=== PATIENT | female | born 1970 | race Caucasian/White ===

== ENCOUNTER 2020-08-23 09:42 | Inpatient (IN) | payer MEDICAID ==
[2020-08-23 12:01] VITALS: BP 131/84
[2020-08-23] MEDS: LORazepam 2 MG TABLET PO PRN ×2 (14:31→20:04)
[2020-08-23] MEDS: HALOPERIDOL 5 MG TABLET PO PRN ×2 (15:45→20:04)
[2020-08-23 16:02] VITALS: BP 101/61
[2020-08-24 01:13] VITALS: BP 100/64
[2020-08-24] MEDS: HALOPERIDOL 5 MG TABLET PO PRN ×2 (06:56→14:22)
[2020-08-24] MEDS: LORazepam 2 MG TABLET PO PRN ×3 (06:56→16:32)
[2020-08-24] MEDS: BACITRACIN 28 GM OINTMENT TP SCH (07:57)
[2020-08-24] MEDS: CITALOPRAM HYDROBROMIDE 20 MG TABLET PO SCH (07:57)
[2020-08-24 08:16] VITALS: BP 118/86
[2020-08-24 16:05] VITALS: BP 127/79
[2020-08-24] MEDS: ZOLPIDEM TARTRATE 10 MG TABLET PO PRN (20:08)
[2020-08-25 02:28] VITALS: BP 120/73
[2020-08-25] MEDS: CITALOPRAM HYDROBROMIDE 20 MG TABLET PO SCH (08:15)
[2020-08-25] MEDS: LORazepam 2 MG TABLET PO PRN ×3 (08:15→16:40)
[2020-08-25] MEDS: BACITRACIN 28 GM OINTMENT TP SCH (08:15)
[2020-08-25 08:16] VITALS: BP 122/73
[2020-08-25] MEDS: HALOPERIDOL 5 MG TABLET PO PRN ×2 (08:55→13:14)
[2020-08-25 16:07] VITALS: BP 111/74
[2020-08-25] MEDS: ZOLPIDEM TARTRATE 10 MG TABLET PO PRN (20:05)
[2020-08-26 00:35] VITALS: BP 106/68
[2020-08-26 07:39] LABS: BASOPHILS % (AUTO) 0.2 % (0.0-2.0); EOSINOPHILS % (AUTO) 1.9 % (1.0-6.0); HEMATOCRIT 36.4 % (36-46); HEMOGLOBIN 12.2 g/dL (12.0-16.0); LYMPHOCYTES # (AUTO) 2.5 K/uL (1.0-4.8); LYMPHOCYTES % (AUTO) 28.1 % (22.0-44.0); MEAN CORPUSCULAR HEMOGLOBIN 27.4 pg (26.0-34.0); MEAN CORPUSCULAR HGB CONC 33.6 G/dL (31.0-37.0); MEAN CORPUSCULAR VOLUME 82 fL (80-100); MONOCYTES # (AUTO) 0.5 K/uL (0.1-1.0); MONOCYTES % (AUTO) 5.3 % (2.0-9.0); NEUTROPHILS # (AUTO) 5.7 K/uL (1.8-7.7); NEUTROPHILS % (AUTO) 64.5 % (40.0-70.0); PLATELET COUNT (AUTO) 259 K/uL (150-450); RED BLOOD CELL COUNT(AUTO) 4.46 MIL/uL (4.00-5.20); RED CELL DISTRIBUTION WIDTH 13.7 % (11.5-14.5)
[2020-08-26 07:53] LABS: HEMOGLOBIN A1C 4.9 % (3.8-5.6)
[2020-08-26 08:05] LABS: ALANINE AMINOTRANSFERASE 18 U/L (12-78); ALBUMIN 3.7 g/dL (3.4-5.0); ALKALINE PHOSPHATASE 103 U/L (46-116); ANION GAP 10 mmol/L (8-16); ASPARTATE AMINOTRANSFERASE 10 U/L (15-37); BILIRUBIN,TOTAL 0.6 mg/dL (0.1-1.0); CALCIUM, TOTAL 8.9 mg/dL (8.8-10.5); CARBON DIOXIDE 25 mmol/L (22-29); CHLORIDE 103 mmol/L (98-107); CHOL/HDL RATIO 3.1 (3.9-5.7); CHOLESTEROL 160 mg/dL (131-200); FREE T4 (FREE THYROXINE) 1.06 ng/dL (0.76-1.46); GLOMERULAR FILTR. RATE CALC > 60 mL/min (>60); GLUCOSE,RANDOM 96 mg/dL (70-110); HCG,QUANTITATIVE 1 mIU/mL (0-6); HDL CHOLESTEROL 52 mg/dL (40-60); LDL CHOL (CALC.) 86 mg/dL (0-130); POTASSIUM 4.1 mmol/L (3.5-5.1); SODIUM SERUM 138 mmol/L (136-145); THYROID STIMULATING HORMONE 0.61 uIU/mL (0.36-3.74); TRIGLYCERIDES 112 mg/dL (15-150); UREA NITROGEN, BLOOD 12 mg/dL (7-18)
[2020-08-26 08:11] VITALS: BP 123/78
[2020-08-26] MEDS: CITALOPRAM HYDROBROMIDE 20 MG TABLET PO SCH (08:45)
[2020-08-26] MEDS: HALOPERIDOL 5 MG TABLET PO PRN ×2 (08:46→13:05)
[2020-08-26] MEDS: BACITRACIN 28 GM OINTMENT TP SCH (08:46)
[2020-08-26] MEDS: LORazepam 2 MG TABLET PO PRN ×2 (08:46→13:05)
[2020-08-26] MEDS ORDERED: CITA-144 PO (13:51)
== END 2020-08-26 16:00 | disposition home or self-care (01) | DRG 750 ==
LOC: B3A 11:15
PROVIDERS: ADMIT Psychiatry & Neurology Psychiatry; ATTEND Psychiatry & Neurology Psychiatry
DX: F25.9 Schizoaffective disorder, unspecified (principal); R45.851 Suicidal ideations
CPT/HCPCS: 80053; 80061; 83036; 84436; 84439; 84443; 84702; 85025